=== PATIENT | female | born 1955 | race Caucasian/White ===

== ENCOUNTER 2016-07-26 09:09 | Day surgery (SDC) | payer BC ==
[~2016-07-26 09:09] MED LIST: LIDOCAINE W/ SODIUM BICARB 0.5 ML SYR ONE; Lactated Ringers 1,000 ML PRIMARY IV ONE
[2016-07-26] MEDS ORDERED: Lactated Ringers 1,000 ML PRIMARY IV ONE (10:07)
--- NOTE | 2016-07-26 11:06 | GEN.OPNOTE ---
Colonoscopy Procedure Note Surgery Date: 07/26/16 Preoperative Diagnosis: Colon cancer screening. Loose stool. Postoperative Diagnosis: Same. Sigmoid diverticulosis. Procedure: Complete colonoscopy with multiple random biopsies. Surgeon: Dank Guo MD Anesthesia Provider: Olive Chacko CRNA Anesthesia Type: MAC Indications: See preoperative diagnosis. It's been 10 years since the patient's last colonoscopy. Multiple random biopsies done for intermittent loose stool. Findings: Prep : [Very good] Cecum : [Normal] Ascending : [Normal] Transverse : [Normal] Sigmoid : [Moderate diverticulosis] Rectum : [Normal] Digital Rectal Exam : [Normal. No perianal pathology.] A lubricated flexible colonoscope was inserted and passed to the blind end of the cecum. The appendiceal orifice and blind end of the cecum were clearly seen. Ileocecal valve was clearly seen. Air was aspirated as the scope was withdrawn. Random biopsies were done from the right colon, transverse colon, sigmoid colon, and rectum. There was sigmoid diverticulosis but otherwise entire colonoscopy was normal without polyp, tumor, neoplastic mass, infectious or inflammatory process. The scope was withdrawn completing the procedure. Patient tolerated the procedure well without complication. She was taken to outpatient surgery in stable condition. Follow-up will be with my office on an as-needed basis. We will call the biopsy results when available and plan therapy and follow-up accordingly.
[2016-07-26 12:47] VITALS: TEMP 97.8
[2016-07-26 12:48] VITALS: RESP 15
== END 2016-07-26 11:28 | disposition home or self-care (01) ==
LOC: SDSC 09:09
PROVIDERS: ATTEND Surgery
DX: Z12.11 Encounter for screening for malignant neoplasm of colon (principal); R19.5 Other fecal abnormalities
CPT/HCPCS: 45380; J2704; J7120